=== PATIENT | female | born 1950 | race Caucasian/White ===

== ENCOUNTER → 2022-10-19 16:17 | Outpatient (BNVA) | payer BC, MEDICAID, SELFPAY | PROVIDERS: Visit Provider Specialist | DX: G24.3 Spasmodic torticollis (principal); G25.0 Essential tremor; F41.9 Anxiety disorder, unspecified; F07.81 Postconcussional syndrome; G51.32 Clonic hemifacial spasm, left; Z79.899 Other long term (current) drug therapy | CPT/HCPCS: 36415; 82310; 82607; 82746; 83735 ==